=== PATIENT | female | born 1950 | race Caucasian/White ===

== ENCOUNTER → 2021-06-01 | Outpatient (CLI) | payer MEDICARE | LOC: MC.RAD 13:19 | DX: Z12.31 Encounter for screening mammogram for malignant neoplasm of breast (principal); N63.20 Unspecified lump in the left breast, unspecified quadrant ==

== ENCOUNTER → 2022-07-18 | Outpatient (CLI) | payer MEDICARE | LOC: MC.RAD 07-04 13:45 | DX: Z12.31 Encounter for screening mammogram for malignant neoplasm of breast (principal) ==